=== PATIENT | female | born 1995 | race African-American/Black ===

== ENCOUNTER 2019-09-02 04:45 | Emergency (ER) | payer BC ==
[~2019-09-02] VITALS: Ht 162.6 cm; Wt 93.0 kg
[~2019-09-02 04:45] MED LIST: NAPROSYN500 MG PO
[2019-09-02 05:46] LABS: ABSOLUTE NEUTROPHILS 11.2 thou/uL (1.4-8.2); BASOPHILS 0.3 % (0.0-2.0); EOSINOPHILS 0.4 % (0.0-3.0); HEMATOCRIT 35.8 % (37.0-47.0); HEMOGLOBIN 11.2 gm/dL (12.0-15.0); MCH 22.9 pg (26.0-34.0); MCHC 31.3 g/dL (28.0-37.0); MCV 73.1 fL (80.0-100.0); MONOCYTES 6.3 % (1.0-8.0); PLATELET COUNT 305 thou/uL (150-400); RDW 18.5 % (10.5-14.5); WBC 14.9 thou/uL (4.0-11.0)
[2019-09-02 05:49] LABS: CALCIUM 8.7 mg/dL (8.5-10.1); CREATININE 0.9 mg/dL (0.6-1.0); POTASSIUM 3.8 mmol/L (3.5-5.1)
[2019-09-02] MEDS ORDERED: NORCO 5-325 TA1 EAC2 PO (06:28)
[2019-09-02 06:59] VITALS: BP 120/68
[2019-09-02 07:27] LABS: ANISOCYTOSIS 2+; HYPOCHROMASIA 1+; PLATELET ESTIMATE NORMAL
== END 2019-09-02 07:00 | disposition home or self-care (01) ==
LOC: ER 04:45
PROVIDERS: Emergency Medicine
DX: O03.4 Incomplete spontaneous abortion without complication (principal); Z79.899 Other long term (current) drug therapy; Z3A.11 11 weeks gestation of pregnancy